=== PATIENT | female | born 1985 | race Caucasian/White ===

== ENCOUNTER 2020-04-29 16:25 | Outpatient (REF) | payer MEDICARE, MEDICAID, SELFPAY | END 2020-04-29 16:26 | disposition home or self-care (01) | LOC: HO.LAB 16:25 | PROVIDERS: Visit Provider Nurse Practitioner Family | DX: Z13.89 Encounter for screening for other disorder (principal) ==

== ENCOUNTER 2020-04-30 13:09 | Outpatient (REF) | payer MEDICARE, MEDICAID, SELFPAY | END 2020-04-30 13:10 | disposition home or self-care (01) | LOC: HO.HMGCLDS 13:09 | PROVIDERS: Visit Provider Internal Medicine | DX: Z20.828 Contact with and (suspected) exposure to other viral communicable diseases (principal) | CPT/HCPCS: C9803; U0003 ==